=== PATIENT | female | born 1950 | race Caucasian/White ===

== ENCOUNTER 2016-09-19 12:26 | Day surgery (SDC) | payer OTHER ==
[2016-09-19] MEDS ORDERED: ZIAC106.25 PO (12:48)
[2016-09-19 12:49] VITALS: BP 154/84; PULSE 77; RESP 20; TEMP 98.5; O2SAT 94
[2016-09-19] MEDS ORDERED: PRIL20TA2 PO (12:56)
[2016-09-19] MEDS ORDERED: IBUP-1129 PO (12:56)
[2016-09-19] MEDS ORDERED: PLAV75TA29 PO (12:56)
[2016-09-19] MEDS ORDERED: ZOLO50TA PO (12:56)
[2016-09-19] MEDS ORDERED: POTA-163 PO (12:56)
[2016-09-19] MEDS ORDERED: FURO1TAB60 PO (12:56)
[2016-09-19 14:10] VITALS: BP 157/80; PULSE 78; RESP 20; TEMP 98.1; O2SAT 94
--- NOTE | 2016-09-19 14:11 | PD.RAD ---
Post Procedure Progress Note Pre Procedure Diagnosis: (1) Hip pain Post Procedure Diagnosis: (1) Hip pain Procedure Date: Sep 19, 2016 Supervising Radiologist: Blake Hernandes Proceduralist/Assist: Melinda Ascencio, RT(R), Virginia Starkey RT(R)(CV) Estimated blood loss: 0 ml Plan of Activity Patient to Unit: ROPU Patient Condition: Good Additional Comments: 10 ml of straw colored joint fluid removed See PACS Report for procedural detail/treatment Blake Hernandes MD Sep 19, 2016 14:11
--- NOTE | 2016-09-19 14:42 | RADRPT ---
EXAM DATE/TIME: 09/19/2016 13:11 [place] COMPARISON: No previous studies available for comparison. INDICATIONS : Patient with a history of osteoarthritis. MEDICAL HISTORY : Lacerated Liver Acute renal disfunction syndrome PE TIA Disseminated intravascular coagulation SURGICAL HISTORY : Lap Jennifer Laminectomy Hysterectomy Appendectomy ENCOUNTER: Initial ACUITY: 3 months PAIN SCORE: 5/10 LOCATION: Right Hip FLUORO TIME: IMAGE SERIES: Single ultrasound image DEVICE(S): 22 gauge needle was placed into the right hip joint. RESPONSE: Pre procedure pain level was 5/10 Post procedure pain level was 2/10 FLUID: Total volume of 8 cc of straw-colored yellow fluid was removed. PROCEDURE : 1. ultrasound guided right hip aspiration. The risks, benefits and alternatives to the procedure were explained and verbal and written consent w as obtained. The site was prepped in sterile fashion. Full sterile technique was used, including ca p, mask, sterile gloves and gown and a large sterile sheet. Hand hygiene and 2% chlorhexidine and/or betadine/alcohol prep was utilized per protocol for cutaneous antisepsis. The skin and subcutaneous tissues were infiltrated with local anesthetic solution. Ultrasound examination of the right hip demonstrated a small joint effusion. The skin overlying the r egion was prepped and draped in usual sterile fashion. 1% lidocaine solution was injected for local a nesthesia. 21 gauge spinal was then advanced under direct real-time guidance into the hip joint. Appr oximately 8 cc of straw-colored joint fluid was removed. No additional fluid could be removed. Approx imately 4 cc of 1% lidocaine was injected through the needle and the needle was withdrawn. The patient tolerated the procedure well and there were no complications. CONCLUSION: 1. Right hip ultrasound guided arthrocentesis yielding 8 cc of straw-colored joint fluid. [facility] was submitted for laboratory analysis per request. Blake Hernandes MD on September 19, 2016 at 14:38 Board Certified Radiologist. This report was verified electronically.
[2016-09-19 15:57] LABS: WBC, SYNOVIAL FLUID 95 /MM3 (0-200)
== END 2016-09-19 14:25 | disposition home or self-care (01) ==
LOC: HROP 12:26 → HRIP 12:27 → HROP 14:25
PROVIDERS: ATTEND Surgery
DX: M25.551 Pain in right hip (principal); M19.90 Unspecified osteoarthritis, unspecified site; N28.9 Disorder of kidney and ureter, unspecified; Z86.711 Personal history of pulmonary embolism; Z86.73 Personal history of transient ischemic attack (TIA), and cerebral infarction without residual deficits; Z88.1 Allergy status to other antibiotic agents
CPT/HCPCS: 20610; 77002; 86403; 87070; 87077; 87186; 87205; 89051